=== PATIENT | male | born 1955 | race Caucasian/White ===

== ENCOUNTER 2017-05-28 01:58 | Inpatient (IN) | payer OTHER ==
[~2017-05-28] VITALS: Ht 172.7 cm; Wt 90.7 kg
[~2017-05-28 01:58] MED LIST: ASPIRIN EC81 M1 PO; ATENOLOL50 M1 PO; ATORVASTATIN CA40 M1 PO; SERTRALINE HCL50 MG PO
--- NOTE | 2017-05-28 07:16 | Admission Core Measures ---
Admission Meds I reviewed the following Meds: Current Medications Sig/Katie Start time Last Medication Dose Stop Time Status Admin Acetaminophen 975 MG ONCE 05/28 0000 NR (Tylenol) 05/28 2359 Cefazolin Sodium 2,000 MG ONCE 05/28 NR (Kefzol-Ancef Inj) 05/28 2359 Oxycodone HCl 10 MG ONCE 05/28 0000 NR (Roxicodone) 05/28 2359 Acute Coronary Syndrome Inclusion Criteria ACS Diagnosis No Inpatient Core Measures LDL Reminder: If No, please order W/I first 24hr of stay Congestive Heart Failure Inclusion Criteria CHF Diagnosis No Cerebrovascular accident Inclusion Criteria CVA/TIA Diagnosis No Inpatient Core Measures Bedside Swallow Eval Reminder: If BSE failed, place ST order Antithrombotic Reminder: Order Antithrombotic Medication by end of day 2 Antithrombotic Reminder: Document Reason Antithrombotic Not ordered by end of day 2 AFIB/Flutter Reminder: If Present, add to problem list AFIB/Flutter Reminder: Order Anticoag Medication for pts with AFIB/Flutter Atherosclerosis Reminder: If Present, add to problem list LDL Reminder: If No, please order W/I first 24hr of stay PT Order Reminder: If No, please order Venous thromboembolism Inpatient Core Measures VTE Risk Factors: Surgery No [facility] VTE prophylaxis d/t No contraindications No VTE Pharm Prophylaxis d/t No contraindications Inclusion Criteria - Per Current guidelines, there needs to be overlap - treatment for the first 5 days of Warfarin therapy. - Parenteral Anticoagulation (IV or SC) needs to be - given along with Warfarin therapy. VTE Diagnosis No VTE Type NONE VTE Confirmed by (Test) NONE Problem List As ranked by this Provider includes Assessment & Plan 1. Primary osteoarthritis of left hip HOME MEDS Home Med List Aspirin (Ecotrin*) 81 MG TABLET.DR 1 TAB PO DAILY PROPHO (Reported) Atenolol 50 MG TABLET 1 TAB PO NIGHTLY BP (Reported) Atorvastatin Calcium 40 MG TABLET 1 TAB PO NIGHTLY CHOLESTEROL (Reported) Sertraline HCl 50 MG TABLET 1 TAB PO NIGHTLY DEPRESSION (Reported)
--- NOTE | 2017-05-28 09:35 | RADIOLOGY REPORT ---
EXAMINATION: XR HIP, LEFT CLINICAL INFORMATION: Status post left hip replacement. COMPARISON: None. TECHNIQUE: AP and cross table lateral views of the left hip were obtained. FINDINGS: There are sequelae of a left total hip arthroplasty, with expected postoperative changes in the soft tissues. The hardware appears in anatomic alignment. There are no acute fractures. There is a small well-defined bone density superiorly along the greater trochanter, most consistent with sequelae of enthesitis or trauma. IMPRESSION: 1. X-ray series demonstrates sequelae of left total hip arthroplasty.
--- NOTE | 2017-05-28 09:43 | Surg Short-stay <48hrs Dis Sum ---
Visit Information Visit Dates Admission Date: 05/28/17 Discharge Date: 05/28/17 Surgical Short Stay DC Summary Admission Diagnosis: PRIMARY UNILATERAL OSTEOARTHRITIS LEFT HIP Final Diagnosis: SAME , S/P LEFT TOTAL HIP REPLACEMENT Procedure(s): LEFT TOTAL HIP REPLACEMENT Summary/Significant Findings: Patient was admitted to the hospital for an elective total joint replacement. The procedure was tolerated well and the patient was transferred to a general surgical floor. Diet was advanced and tolerated, and the patient voided spontaneously. The patient was evaluated and treated by physical therapy. At the time of hospital discharge, vital signs were stable, neurovascular status was intact, and pain was controlled with the use of oral pain medications. Condition at Discharge: STABLE Discharge Disposition: home health services Discharge instructions provided to patient/family: Yes Post discharge follow-up plan: Follow up with Dr. Banuelos in 6 weeks from date of surgery. Please call his office to arrange and/or confirm this appointment.
[2017-05-28] MEDS ORDERED: PROTONIX20 M1 PO (09:49)
[2017-05-28] MEDS ORDERED: ASPIRIN EC325 M2 PO (09:49)
[2017-05-28] MEDS ORDERED: COLACE100 M1 PO (09:49)
[2017-05-28] MEDS ORDERED: MIRALAX17 G1 PO (09:49)
[2017-05-28] MEDS ORDERED: DILAUDID2 M1 PO (09:49)
[2017-05-28] MEDS ORDERED: MS CONTIN15 M2 PO (09:49)
--- NOTE | 2017-05-28 09:57 | Patient Discharge Instructions ---
Discharge Instructions General Discharge Information You were seen/treated for: LEFT HIP PAIN You had these procedures: total hip replacement, left Watch for these problems: Increasing pain despite the use of pain medication Increasing redness, warmth or swelling Drainage of any type from incision Inability to bear weight on operative leg Persistent nausea and vomiting Fever greater than 101.5 degrees No bath, but you may shower: Yes Other wound care: Please keep wound clean and dry. No ointments or lotions of any type on or near incision at any time. No exceptions. Your dressing will be changed by your nurse on the second day after your surgery. Daily dry dressing changes are recommended each day thereafter. Do not soak your wound in a bath at any time until otherwise indicated by Dr. Banuelos. You may shower, please dry wound immediately after shower with a clean towel. Special Instructions: Aspirin: You are taking this medication to help prevent blood clot formation. Please take with food to protect your stomach lining. Please take as directed. Constipation: Pain medication can cause constipation. Dr. Banuelos has recommended that you take Colace and miralax each day. You may discontinue this medication if you develop loose stool or diarrhea. If you wish to continue this medication, it is available over the counter. If you are unable to move your bowels after several days, if you are unable to pass gas and are developing bloating, nausea, or vomiting as a result, please contact your doctor. Diet Continue normal diet: Yes Activity Activity Self Limited: Yes Activity Limited to: Weight bear as tolerated Other activity limits: use assistive devices as needed Acute Coronary Syndrome Inclusion Criteria At DC or during hospital stay patient has or had the following: ACS DIAGNOSIS No Discharge Core Measures Meds if any: Prescribed or Continued at Discharge ARIELLE/ARB if EF <40% No Meds if any: NOT Prescribed or Continued at Discharge Congestive Heart Failure Inclusion Criteria At DC or during hospital stay patient has or had the following: CHF DIAGNOSIS No Discharge Core Measures Meds if any: Prescribed or Continued at Discharge Meds if any: NOT Prescribed or Continued at Discharge Cerebrovascular accident Inclusion Criteria At DC or during hospital stay patient has or had the following: CVA/TIA Diagnosis No Discharge Core Measures Meds if any: Prescribed or Continued at Discharge Meds if any: NOT Prescribed or Continued at Discharge Venous thromboembolism Inclusion Criteria VTE Diagnosis No VTE Type NONE VTE Confirmed by (Test) NONE Discharge Core Measures - Per Current guidelines, there needs to be overlap - treatment for the first 5 days of Warfarin therapy. - If discharged on Warfarin prior to 5 days of - overlap therapy, the patient will need to be - assessed for post discharge needs including - *Post discharge parental anticoagulation - *Warfarin and/or parental anticoagulation education - *Follow up date to check INR post discharge At least 5 days overlap therapy as Inpatient No Meds if any: Prescribed or Continued at Discharge Note: Overlap Therapy is Warfarin and Anticoagulant Meds if any: NOT Prescribed or Continued at Discharge
[2017-05-28 11:17] VITALS: BP 108/70
--- NOTE | 2017-05-28 12:51 | PN- Orthopedic ---
Subjective Subjective: POST-OP NOTE: No complaints. Out of bed to chair. No dizziness. No shortness of breath. No chest pains. Tolerating clears. No nausea. Has yet to void. To be seen by PT shortly for possible discharge later this afternoon. Objective Vital Signs and I&Os Vital Signs Date Time Temp Pulse Resp B/P B/P Pulse O2 O2 Flow FiO2 Mean Ox Delivery Rate 05/28 1117 97.5 59 18 108/70 96 Room Air 05/28 1117 96 Room Air Intake & Output 05/28 1600 05/28 0800 05/28 0000 05/27 1600 05/27 0800 05/27 0000 Intake Total Output Total Balance Patient 200 lb Weight Weight Reported by Patient Measurement Method Physical Exam: General - alert & oriented x 3. comfortable. out of bed to chair. Lungs - clear bilaterally. no w/r/r. Cardiac - s1s2. reg. Abdomen - soft. nontender. Extremities - warm bilaterally. left hip dressing c/d/i. no drains. no hematoma. nvi. Current Medications: Current Medications Sig/Katie Start time Last Medication Dose Route Stop Time Status Admin Acetaminophen 650 MG Q4P PRN 05/28 1115 AC PO Acetaminophen 0 .STK-MED ONE 05/28 0703 DC PO Acetaminophen 975 MG ONCE 05/28 0000 DC PO 05/28 2359 Aspirin 325 MG BID 05/28 1000 AC 05/28 PO 1241 Atenolol 50 MG AT BEDTIME 05/28 2200 DC PO Atenolol 50 MG AT BEDTIME 05/28 2200 AC PO Atorvastatin Calcium 40 MG AT BEDTIME 05/28 2200 DC PO Atorvastatin Calcium 40 MG AT BEDTIME 05/28 2200 AC PO Cefazolin Sodium 2 GM IQ8 05/28 1600 DC N/A 1 UNIT IV 05/29 0029 Cefazolin Sodium 2 GM Q8H 05/28 1530 AC N/A 1 UNIT IV 05/28 2359 Cefazolin Sodium 2,000 MG ONCE 05/28 0000 DC IV 05/28 2359 Dextrose/Sodium 1,000 ML .[id number] 05/28 1115 AC 05/28 Chloride IV 1115 Docusate Sodium 100 MG BID 05/28 1000 AC 05/28 PO 1241 Hydromorphone HCl 2 MG Q4P PRN 05/28 1115 AC PO Hydromorphone HCl 4 MG Q4P PRN 05/28 1115 AC PO Ketorolac 15 MG Q8P PRN 05/28 1115 AC Tromethamine IV 05/31 1109 Morphine Sulfate 2 MG Q2P PRN 05/28 1115 AC IV Omeprazole 20 MG DAILY AC 05/29 0700 AC PO Ondansetron HCl 4 MG Q6P PRN 05/28 1115 AC IV Oxycodone HCl 0 .STK-MED ONE 05/28 0704 DC PO Oxycodone HCl 10 MG ONCE 05/28 0000 DC PO 05/28 2359 Polyethylene Glycol 17 GM DAILY 05/28 1000 AC 05/28 PO 1242 Promethazine HCl 12.5 MG Q6P PRN 05/28 1115 AC IV 06/04 0929 Sertraline HCl 50 MG AT BEDTIME 05/28 220 DC PO Sertraline HCl 50 MG AT BEDTIME 05/28 2200 AC PO Assessment/Plan Assessment/Plan This 62 year old white male is POD#0 s/p left total hip replacement no pain reported at this time tolerating diet miquel-operative ancef x 2 doses awaiting PT eval for clearance to home today asa bid due to void prior to discharge likely d/c home later pending he meet the above will d/w Core Measures/Miscellaneous Venous Thromboembolism VTE Risk Factors: Age > 40, Surgery VTE Contraindications: No Contraindications VTE Diagnosis: No VTE Type: NONE VTE Confirmed by (Test): NONE Beta Rohini Is Beta Rohini a Home Med? Yes If Yes, Was This Ordered Today? Yes Antibiotics Is Patient on Antibiotics? Yes If Yes: prophylaxis
--- NOTE | 2017-05-28 12:51 | NUR ---
PATIENT ARRIVED TO FLOOR AT 1045 FROM PACU, S/P L TOTAL HIP VS 97.5 59 18 108/70 96% ROOM AIR; A&OX3; NORMALLY INDEPENDENT; FALL WITHIN PAST 6 MONTHS, RED SOCKS, SIGN AND BRACELET ON; AWAITING PT EVAL; DSG TO L HIP CDI, SKIN INTACT OTHERWISE; IV #20 TO LH WITH D5 1/2 NS @ 75 ML/HR RUNNING; ORIENTED TO ROOM AND CALL REVELES; NO C/O PAIN AT THIS TIME; ICE MORGAN IN PLACE; POSSIBLE D/C TODAY; NEEDS TO VOID AND TOLERATE LUNCH; NEEDS WITHIN REACH, SAFETY MAINTAINED.
--- NOTE | 2017-05-28 17:49 | Operative Report ---
Operative/Inv Procedure Report Surgery Date: 05/28/17 Name of Procedure: Left total hip replacement Pre-Operative Diagnosis: Primary left hip DJD Post-Operative Diagnosis: Same Estimated Blood Loss: 250 Surgeon/Medical Education Coordinator: TRESA FLANNERY,SHAHIDA Campbell Anesthesia: block Operative/Procedure Note Note: Description of Procedure: The patient was taken to the operating room and positively identified. After induction of spinal anesthesia and administration of appropriate pre-operative antibiotics, the patient was positioned supine on the operating room table and all bony prominences were well padded. After performing a surgical timeout, the left lower extremity was prepped and draped in the usual sterile fashion. A direct anterior approach was made to the left hip. The incision was carried sharply through superficial soft tissues to the level of the fascia. Meticulous hemostasis was maintained with Bovie electocautery. The fascia over the tensor fascia debra muscle was opened sharply and the interval between the TFL and the sartorius was entered bluntly taking care to stay lateral to the lateral femoral cutaneous nerve. Retractors were placed around the femoral neck and the pericapsular fat was identified. The ascending branches of the lateral femoral circumflex vessels were identified and carefully coagulated. The pericapsular fat and anterior capsule were then resected. A napkin ring osteotomy was performed and the femoral head was removed without difficulty. Attention was then turned to the acetabulum. After appropriate placement of retractors, the acetabulum was exposed. Soft tissue was cleaned from the acetabular margin and notch. Overhanging osteophytes were removed and the teardrop was exposed. The acetabulum was then sequentially reamed to accept a 64 mm Pauline Tritanium hemispherical solid back shell. This was impacted into place in the appropriate position and fitted with a 36 mm Trident X3 zero degree polyethylene insert. Attention was then turned to the femur. After performing the appropriate ligament releases, the proximal femur was exposed. It was then sequentially broached to accept a size 6 Pauline Anato stem. This was trialed for leg length and stability. The trial component was removed and the final component was impacted into place. The trunnion was carefully cleaned and fit with a 36 mm, + 0 Biolox delta ceramic femoral head. The hip was reduced and put through a full range of motion and found to be stable. The articular space was then irrigated with sterile saline. The periarticular soft tissues were infilitrated with Marcaine. The fascial layer was closed with interrupted #1 vicryl suture and the skin was re-approximated with interrupted 2 -0 vicryl. The skin was closed with a running 3-0 V-Lock suture. Steri-strips and a sterile dressing were applied. The patient was awakened and taken to the recovery room in satisfactory condition.
== END 2017-05-28 15:38 | disposition home health service (06) | DRG 470 ==
LOC: SDA 01:58 → ENRESERV 10:00 → ENTRNSPT 10:30 → EDTRNSPTSTS 10:34 → 2NB 10:40 → CMPTRNSPT 10:47 → 2NB 15:38
PROVIDERS: ADMIT Orthopaedic Surgery
PROC: 0SRB04A Replacement of Left Hip Joint with Ceramic on Polyethylene Synthetic Substitute, Uncemented, Open Approach (ICD-10-PCS; principal; 2017-05-28)
DX: M16.12 Unilateral primary osteoarthritis, left hip (principal); I10 Essential (primary) hypertension; J45.909 Unspecified asthma, uncomplicated; F32.9 Major depressive disorder, single episode, unspecified; E78.00 Pure hypercholesterolemia, unspecified; I49.3 Ventricular premature depolarization
CPT/HCPCS: 2NBSP; 73502-LT; 97110-GO; 97116-GO; 97161-GP; J0690; J0735; J1100; J1885; J2405; J2550; J7042